=== PATIENT | female | born 1965 | race Two or more races ===

== ENCOUNTER 2023-05-25 07:12 | Outpatient (CLI) | payer OTHER ==
[~2023-05-25 07:12] MED LIST: AMOXICILLIN500 M1; ATORVASTATIN CA20 MG; [UNRECOGNIZED DRUG - REMARK]
== END 2023-05-25 07:23 | disposition home or self-care (01) ==
LOC: NUCLEAR 07:12
PROVIDERS: ATTEND Internal Medicine
DX: R07.9 Chest pain, unspecified (principal); I10 Essential (primary) hypertension; E78.2 Mixed hyperlipidemia